=== PATIENT | male | born 1940 | race Caucasian/White ===

== ENCOUNTER 2020-04-20 20:17 | Emergency (ER) | payer OTHER ==
[~2020-04-20] VITALS: Ht 167.6 cm; Wt 90.7 kg
[2020-04-20] MEDS ORDERED: TRAMADOL 50 MG50 MG PO (21:34)
[2020-04-20] MEDS ORDERED: MOBIC7.5 MG PO (21:34)
[2020-04-20 22:25] VITALS: BP 172/77
== END 2020-04-20 22:23 | disposition home or self-care (01) ==
LOC: ER 20:17
DX: R25.2 Cramp and spasm (principal); M25.561 Pain in right knee; M25.562 Pain in left knee; E11.9 Type 2 diabetes mellitus without complications; I10 Essential (primary) hypertension; Z96.651 Presence of right artificial knee joint; Z96.652 Presence of left artificial knee joint; Z88.0 Allergy status to penicillin